=== PATIENT | female | born 2000 | race Two or more races ===

== ENCOUNTER 2022-11-06 10:18 | Emergency (ER) | payer OTHER ==
[~2022-11-06] VITALS: Ht 154.9 cm; Wt 44.5 kg
== END 2022-11-06 15:16 | disposition home or self-care (01) ==
LOC: ER 10:18
DX: O20.9 Hemorrhage in early pregnancy, unspecified (principal); Z3A.01 Less than 8 weeks gestation of pregnancy

== ENCOUNTER 2023-04-05 06:43 | Emergency (ER) | payer OTHER ==
[~2023-04-05] VITALS: Ht 162.6 cm; Wt 47.2 kg
[2023-04-05] MEDS ORDERED: ZOFRAN8 MG PO (09:21)
[2023-04-05] MEDS ORDERED: PEPCID AC20 MG PO (09:21)
== END 2023-04-05 09:37 | disposition home or self-care (01) ==
LOC: ER 06:43
DX: O99.612 Diseases of the digestive system complicating pregnancy, second trimester (principal); K92.89 Other specified diseases of the digestive system; K52.89 Other specified noninfective gastroenteritis and colitis; Z3A.20 20 weeks gestation of pregnancy

== ENCOUNTER 2023-06-17 13:00 | Inpatient (IN) | payer OTHER ==
[~2023-06-17] VITALS: Ht 154.9 cm; Wt 51.7 kg
[~2023-06-17 13:00] MED LIST: PEPCID AC20 MG PO; ZOFRAN8 MG PO
[2023-06-30] MEDS ORDERED: PRENATABS RX T1 EACH PO (05:15)
[2023-06-30] MEDS ORDERED: FOLIC ACID0.8 M1 PO (05:15)
[2023-06-30 05:40] LABS: PH,URINE 5.5 (5.0-8.0); URINE APPEARANCE Clear; URINE BILIRRUBIN Negative (NEGATIVE); URINE BLOOD Negative; URINE COLOR Yellow; URINE GLUCOSE Negative (NEGATIVE); URINE LEUKOCYTE Small; URINE NITRATE Negative; URINE PROTEIN Negative (NEGATIVE)
[2023-06-30 05:44] LABS: URINE BACTERIA 1266.1 uL (0.0-1933); URINE EPITHELIAL CELLS 21.7 uL (0.0-38.8); URINE WBC 124.7 uL (0.0-23.2)
[2023-06-30 05:55] LABS: HEMATOCRIT 34.6 % (36.0-45.00); HEMOGLOBIN 12.1 g/dL (12.0-15.00); MEAN CORPUSCULAR HGB CONC 34.9 g/dl (32.0-36.0); PLATELET COUNT 224 K/uL (150-450); RED BLOOD COUNT 3.89 M/uL (4.00-6.00); RED CELL DISTRIBUTION WIDTH 13.7 % (11.5-14.5)
[2023-06-30 05:59] LABS: URINE RBC 0.2 uL (0.0-20.8)
[2023-06-30 06:01] LABS: INR 0.97; PARTIAL THROMBOPLASTIN TIME 30.7 SECONDS (22.0-34.0); PROTHROMBIN TIME 10.2 SECONDS (9.0-11.5)
[2023-06-30] MEDS ORDERED: RINGERS SOLUTION,LACTATED 1,000 ML IV SCH (07:00)
[2023-06-30] MEDS ORDERED: OXYTOCIN 500 ML IV SCH (07:00)
[2023-06-30] MEDS ORDERED: CHLORHEXIDINE GLUCONATE 120 ML BOTTLE TOP ONE ×2 (12:21→17:00)
[2023-06-30] MEDS ORDERED: ERYTHROMYCIN BASE 1 GM TUBE OP ONE ×2 (12:21→17:00)
[2023-06-30] MEDS ORDERED: OXYTOCIN 20 UNITS/1000ML RL PIGGYBAG IV ONE ×2 (12:22→17:00)
[2023-06-30] MEDS ORDERED: HYDROCORTISONE 2.5% 30 GM TUBE RECTAL SCH (17:00)
[2023-06-30] MEDS ORDERED: ACETAMINOPHEN 325 MG TABLET PO PRN (17:00)
[2023-06-30] MEDS ORDERED: OxyCODONE HCL/APAP UD (PERCOCET) PO PRN (17:00)
[2023-06-30] MEDS ORDERED: LIDOCAINE HCL 1% 200MG/20ML VIAL IJ ONE (17:00)
[2023-06-30] MEDS ORDERED: BENZOCAINE/MENTHOL 90 ML BOTTLE TOP SCH (17:00)
[2023-07-01 01:43] LABS: HEMATOCRIT 33.2 % (36.0-45.00); HEMOGLOBIN 11.2 g/dL (12.0-15.00); MEAN CORPUSCULAR HEMOGLOBIN 29.6 pg (27.00-32.0); MEAN CORPUSCULAR HGB CONC 33.7 g/dl (32.0-36.0); PLATELET COUNT 268 K/uL (150-450); RED BLOOD COUNT 3.77 M/uL (4.00-6.00); RED CELL DISTRIBUTION WIDTH 14.4 % (11.5-14.5)
== END 2023-07-02 16:04 | disposition home or self-care (01) | DRG 807 ==
LOC: LDR 06-30 04:47 → OB/GYN 06-30 16:39 → LDR 07-01 13:00 → OB/GYN 07-02 16:04
PROVIDERS: ADMIT Specialist; ATTEND Specialist
PROC: 10E0XZZ Delivery of Products of Conception, External Approach (ICD-10-PCS; principal; 2023-06-30)
PROC: 0W8NXZZ Division of Female Perineum, External Approach (ICD-10-PCS; 2023-06-30)
PROC: 4A1HXCZ Monitoring of Products of Conception, Cardiac Rate, External Approach (ICD-10-PCS; 2023-06-30)
DX: O80 Encounter for full-term uncomplicated delivery (principal); Z37.0 Single live birth; Z3A.39 39 weeks gestation of pregnancy; Z20.822 Contact with and (suspected) exposure to COVID-19